=== PATIENT | female | born 1965 | race Asian ===

== ENCOUNTER 2016-07-08 10:27 | Day surgery (SDC) | payer BC, OTHER ==
[2016-07-06 15:07] VITALS: BMI 24.7
[2016-07-08] MEDS ORDERED: LIDOCAINE 1% 20 ML VIAL (10MG/ML) FOR IV START INTRADERMA ONE (11:21)
[2016-07-08] MEDS: LACTATED RINGERS 1,000 ML IV SCH ×2 (11:21→11:40)
[2016-07-08] MEDS ORDERED: LIDOCAINE 1% INJ 10MG/ML (20 ML MDV) ONE (11:45)
[2016-07-08] MEDS ORDERED: PROPOFOL 10 MG/ML 20 ML VIAL IV ONE (11:45)
--- NOTE | 2016-07-08 11:59 | P.PCN ---
Date of Procedure: 07/08/16 Procedure(s) Performed: BRIEF HISTORY: Patient is a 50-year-old pleasant white female, scheduled for an elective colonoscopy as a part of screening for colorectal neoplasia. PROCEDURE PERFORMED: Colonoscopy. PREOPERATIVE DIAGNOSIS: Screening for colon cancer. IV sedation per Anesthesia. PROCEDURE: After informed consent was obtained, the patient, was brought into the endoscopy unit. IV sedation was administered by Anesthesia under continuous monitoring. Digital rectal examination was normal. Initially the Olympus CF- 160 flexible video colonoscope was then inserted in the rectum, gradually advanced into the cecum without any difficulty. Careful examination was performed as the scope was gradually being withdrawn. Ileocecal valve and the appendiceal orifice were visualized and appeared normal. Prep was fair and thorough irrigation was performed using irrigation system. Mucosa of the cecum, ascending colon, transverse colon, descending colon, sigmoid colon, and rectum appeared normal. Retroflexion was performed in the rectum and no lesions were seen. The patient tolerated the procedure well. IMPRESSION: Normal-appearing colon from rectum to cecum no evidence of colorectal neoplasia. RECOMMENDATIONS: Findings of this examination were discussed with the patient as well as her family. She was advised to have a repeat screening colonoscopy in 10 years.
[2016-07-08 12:04] VITALS: RESP 18
[2016-07-08 12:51] VITALS: BP 112/76; PULSE 77
== END 2016-07-08 12:53 | disposition home or self-care (01) ==
LOC: ORWHC2ENDO 10:27
PROVIDERS: ATTEND Internal Medicine Gastroenterology
DX: Z12.11 Encounter for screening for malignant neoplasm of colon (principal); Z79.82 Long term (current) use of aspirin; Z72.0 Tobacco use; K21.9 Gastro-esophageal reflux disease without esophagitis; Z88.2 Allergy status to sulfonamides
CPT/HCPCS: 81025; J2001; J2704; G0121

== ENCOUNTER → 2016-09-06 | Outpatient (CLI) | payer BC ==
--- NOTE | 2016-09-06 08:15 | MR ---
EXAMINATION TYPE: MR knee RT wo con DATE OF EXAM: 09/06/2016 COMPARISON: NONE HISTORY: RT knee pain TECHNIQUE: Multiplanar, multisequence imaging of the right knee is performed without IV contrast. 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 CRUCIATE LIGAMENTS: The anterior and posterior cruciate ligaments are intact and unremarkable. COLLATERAL LIGAMENTS: The medial collateral ligament and lateral collateral ligament complex are inta ct and unremarkable. EXTENSOR MECHANISM: Visualized quadriceps and patellar tendons are intact. EFFUSION: No significant suprapatellar joint effusion. POPLITEAL CYST: There is a popliteal fossa cyst measuring 1 x 2 x 4 cm. TRICOMPARTMENT SPACES: Joint spaces appear to demonstrate mild narrowing of the medial compartment of the knee joint. There is grade II chondromalacia the medial femoral articular cartilage. Patellar ca rtilage demonstrates thinning along the medial patellar facet compatible with chondromalacia. BONE MARROW SIGNAL: Cystic change involving the inferior pole of the patella likely related to post a rthritic changes IMPRESSION: Osteoarthritis and changes of chondromalacia as discussed above 1 x 2 x 4 cm popliteal fossa cyst
== END | disposition home or self-care (01) ==
LOC: RADMRIMAIN 07:09
PROVIDERS: ATTEND Orthopaedic Surgery
DX: M17.11 Unilateral primary osteoarthritis, right knee (principal); M71.21 Synovial cyst of popliteal space [Baker], right knee; M94.261 Chondromalacia, right knee

== ENCOUNTER 2019-04-19 10:10 | Day surgery (SDC) | payer BC ==
[2019-04-19 10:34] VITALS: RESP 16; TEMP 98.8
[2019-04-19] MEDS ORDERED: LACTATED RINGERS 1,000 ML IV ONE (10:37)
[2019-04-19 11:24] LABS: HCT 37.9 % (34.0-46.0); HGB 13.1 gm/dL (11.4-16.0); MCH 31.9 pg (25.0-35.0); MCHC 34.6 g/dL (31.0-37.0); MCV 92.1 fL (80.0-100.0); Mean Platelet Volume 7.5; Platelet Count 308 k/uL (150-450); RBC 4.12 m/uL (3.80-5.40); RDW 12.4 % (11.5-15.5); WBC 2.6 k/uL (3.8-10.6)
--- NOTE | 2019-04-19 11:51 | P.GSHP ---
History of Present Illness H&P Date: 04/19/19 Chief Complaint: Dysphagia, GERD This a 53-year-old female has had issues with GERD and dysphagia. Patient presents today for EGD. Past Medical History Past Medical History: GERD/Reflux, Hypertension, Thyroid Disorder Additional Past Medical History / Comment(s): HX HIATAL HERNIA W/ prev SURGERY; CT scan shows hiatal hernia now, LOW THYROID History of Any Multi-Drug Resistant Organisms: None Reported Past Surgical History: Hernia Repair, Orthopedic Surgery, Tubal Ligation Additional Past Surgical History / Comment(s): Lt knee scope, hiatal hernia repair 2002, abdominoplasty Past Anesthesia/Blood Transfusion Reactions: Postoperative Nausea & Vomiting (PONV) Additional Past Anesthesia/Blood Transfusion Reaction / Comment(s): WOKE UP DURING EGD. Smoking Status: Current every day smoker - Past Family History Mother Family Medical History: No Reported History Father Family Medical History: Cancer Medications and Allergies Home Medications Medication Instructions Recorded Confirmed Type Acetaminophen [Tylenol Extra 500 - 1,000 mg PO DIRECTED PRN 04/18/19 04/19/19 History Strength] Levothyroxine Sodium [Synthroid] 75 mcg PO DAILY 04/18/19 04/19/19 History amLODIPine [Norvasc] 5 mg PO DAILY 04/18/19 04/19/19 History Allergies Allergy/AdvReac Type Severity Reaction Status Date / Time Sulfa (Sulfonamide Allergy Swelling Verified 04/19/19 10:26 Antibiotics) Surgical - Exam Vital Signs Temp Pulse Resp BP Pulse Ox 98.8 F 75 16 116/66 95 04/19/19 10:30 04/19/19 10:30 04/19/19 10:30 04/19/19 10:30 04/19/19 10:30 - General well developed, well nourished, no distress - Eyes PERRL - ENT normal pinna - Neck no masses - Respiratory normal expansion - Cardiovascular Rhythm: regular - Abdomen Abdomen: soft, non tender Results - Labs 04/19/19 10:40 Abnormal Lab Results - Last 24 Hours (Table) 04/19/19 Range/Units 10:40 WBC 2.6 L (3.8-10.6) k/uL Assessment and Plan Assessment: GERD, dysphagia. We'll perform EGD.
[2019-04-19] MEDS ORDERED: PROPOFOL 10 MG/ML 20 ML VIAL IV ONE (11:54)
[2019-04-19] MEDS ORDERED: LIDOCAINE 1% INJ 10MG/ML (20 ML MDV) ONE (11:54)
--- NOTE | 2019-04-19 11:57 | P.OP ---
Date of Procedure: 04/19/19 Preoperative Diagnosis: GERD Dysphagia Postoperative Diagnosis: Hiatal hernia Antral gastritis Esophagitis Procedure(s) Performed: EGD Anesthesia: MAC Surgeon: Rocco Davidson Pathology: other (Antrum, esophagus) Condition: stable Disposition: PACU Description of Procedure: The patient's placed on the endoscopy table in the lateral position. She received IV sedation. The gastric was placed oropharynx and passed in the esophagus and then the stomach. Scope was then placed through the pylorus. The first and second portion of the duodenum appeared normal. Scope was then brought back the antrum and this appeared mildly inflamed. A biopsies performed. Scope was unretroflexed patient had a moderate size hiatal hernia. The GE junction was at 38 cm . The distal esophagus appeared mildly inflamed. The proximal esophagus appeared normal. The distal esophagus was biopsied. Scope was withdrawn for patient.
[2019-04-19 12:34] VITALS: BP 111/73; PULSE 73
== END 2019-04-19 12:58 | disposition home or self-care (01) ==
LOC: ORWHC2ENDO 10:10
PROVIDERS: ATTEND Surgery
DX: K31.9 Disease of stomach and duodenum, unspecified (principal); K29.70 Gastritis, unspecified, without bleeding; K21.0 Gastro-esophageal reflux disease with esophagitis; K44.9 Diaphragmatic hernia without obstruction or gangrene; I10 Essential (primary) hypertension; E03.9 Hypothyroidism, unspecified; M51.9 Unspecified thoracic, thoracolumbar and lumbosacral intervertebral disc disorder; R51 Headache; F17.200 Nicotine dependence, unspecified, uncomplicated; Z87.19 Personal history of other diseases of the digestive system; Z98.890 Other specified postprocedural states; Z98.51 Tubal ligation status; Z91.89 Other specified personal risk factors, not elsewhere classified; Z79.890 Hormone replacement therapy; Z79.899 Other long term (current) drug therapy; Z88.2 Allergy status to sulfonamides; Z80.9 Family history of malignant neoplasm, unspecified
CPT/HCPCS: 93005; 88305; 85027; 43239; J2001; J2704

== ENCOUNTER 2019-04-23 07:38 | Inpatient (IN) | payer BC ==
[~2019-04-23 07:38] MED LIST: DEXAMETHASONE SOD PHOSPHATE 10 MG/ML 1 ML VIAL IV ONE; HEPARIN SODIUM,PORCINE 5,000 UNIT/ML 1 ML VIAL SQ ONE; LACTATED RINGERS 1,000 ML IV SCH; LIDOCAINE 1% 20 ML VIAL (10MG/ML) FOR IV START INTRADERMA PRN; ONDANSETRON 4 MG/2 ML VIAL IVP ONE
--- NOTE | 2019-04-23 08:47 | P.GSHP ---
History of Present Illness H&P Date: 04/23/19 Chief Complaint: GERD This 53-year-old female has developed a recurrent hiatal hernia. Patient rents today for laparoscopic repair of hiatal hernia. Past Medical History Past Medical History: GERD/Reflux, Hypertension, Thyroid Disorder Additional Past Medical History / Comment(s): HX HIATAL HERNIA W/ prev SURGERY; CT scan shows hiatal hernia now, LOW THYROID History of Any Multi-Drug Resistant Organisms: None Reported Past Surgical History: Hernia Repair, Orthopedic Surgery, Tubal Ligation Additional Past Surgical History / Comment(s): Lt knee scope, hiatal hernia repair 2002, abdominoplasty Past Anesthesia/Blood Transfusion Reactions: Postoperative Nausea & Vomiting (PONV) Additional Past Anesthesia/Blood Transfusion Reaction / Comment(s): WOKE UP DURING EGD. Smoking Status: Current every day smoker - Past Family History Mother Family Medical History: No Reported History Father Family Medical History: Cancer Additional Family Medical History / Comment(s): leukemia Medications and Allergies Home Medications Medication Instructions Recorded Confirmed Type Acetaminophen [Tylenol Extra 500 - 1,000 mg PO DIRECTED PRN 04/18/19 04/19/19 History Strength] Levothyroxine Sodium [Synthroid] 75 mcg PO DAILY 04/18/19 04/19/19 History amLODIPine [Norvasc] 5 mg PO DAILY 04/18/19 04/19/19 History Allergies Allergy/AdvReac Type Severity Reaction Status Date / Time Sulfa (Sulfonamide Allergy Swelling Verified 04/19/19 10:26 Antibiotics) Surgical - Exam Vital Signs Temp Pulse Resp BP Pulse Ox 99.3 F 82 16 135/65 95 04/23/19 07:59 04/23/19 07:59 04/23/19 07:59 04/23/19 07:59 04/23/19 07:59 - General well developed, well nourished, no distress - Eyes PERRL - ENT normal pinna - Neck no masses - Respiratory normal expansion - Cardiovascular Rhythm: regular - Abdomen Abdomen: soft, non tender Assessment and Plan Assessment: Hilar hernia. We'll perform laparoscopic repair.
[2019-04-23] MEDS ORDERED: MIDAZOLAM 2 MG/2 ML VIAL ONE (09:01)
[2019-04-23] MEDS ORDERED: fentaNYL (PF) 50 MCG/ML 2 ML AMP ONE (09:01)
[2019-04-23] MEDS ORDERED: KETOROLAC 30 MG/ML 1 ML VIAL ONE (09:01)
[2019-04-23] MEDS ORDERED: ROCURONIUM BROMIDE 10 MG/ML 10 ML VIAL IV ONE (09:01)
[2019-04-23] MEDS ORDERED: HYDROmorphone (PF) 1 MG/ML ONE (09:01)
[2019-04-23] MEDS ORDERED: NEOSTIGMINE 1 MG/ML 10 ML VIAL ONE (09:01)
[2019-04-23] MEDS ORDERED: LIDOCAINE 1% INJ 10MG/ML (20 ML MDV) ONE (09:01)
[2019-04-23] MEDS ORDERED: PHENYLEPHRINE-0.9% NACL SYG 1 MG/10 ML SYRINGE ONE (09:01)
[2019-04-23] MEDS ORDERED: GLYCOPYRROLATE 0.2 MG/ML 2 ML VIAL ONE (09:01)
[2019-04-23] MEDS ORDERED: BUPIVACAINE (PF) 0.25% 30 ML VIAL SQ ONE (09:29)
[2019-04-23] MEDS ORDERED: LACTATED RINGERS 1,000 ML IV ONE (10:08)
[2019-04-23] MEDS ORDERED: diphenhydrAMINE 50 MG/ML 1 ML VIAL IVP ONE (10:40)
[2019-04-23] MEDS: HYDROmorphone 0.5 MG/0.5 ML SYRINGE IVP PRN ×4 (10:47→11:25)
--- NOTE | 2019-04-23 10:55 | P.OP ---
Date of Procedure: 04/23/19 Preoperative Diagnosis: GERD Dysphagia Postoperative Diagnosis: GERD Dysphagia Large hiatal hernia Procedure(s) Performed: Laparoscopic hiatal hernia with mesh repair of hiatus Anesthesia: WERNER Surgeon: Rocco Davidson Estimated Blood Loss (ml): 10 Pathology: none sent Condition: stable Disposition: PACU Description of Procedure: The patient was placed on the operating table in the supine position. She received general anesthesia. She was then placed in dorsal lithotomy position. Her abdomen was prepped and draped in the usual sterile fashion. The skin incision sites were anesthetized with 1% local Xylocaine. The skin was incised in the left periumbilical area with an 11 scalpel. Using a 5 mm blade was trocar under direct visitation the peritoneal cavity was entered. And then insufflated. After adequate insufflation the laparoscope was placed back into the peritoneal cavity. Next a 5 mm trocar was placed in the right epigastric and then the right lateral position. Another 5 mm trochars placed in the left lateral position. Another 5 mm trocar placed in the left epigastric position. And the original left periumbilical trocar was exchanged for a 10 mm trocar. The left lateral lobe liver was retracted. The patient had a large hiatal hernia. Using the Harmonic scissors the crural defect was dissected in the Harmonic scissors were used to dissect the hiatal hernia sac. The fundus of the stomach was completely mobilized by using the Harmonic scissors to divide short gastric vessels. The stomach was reduced into the peritoneal cavity. The crura was dissected with the Harmonic scissors. And then the crural repair was performed using 2-0 Ethibond suture. The [place] bio A mesh was then placed over top of the repair and secured with 2-0 Ethibond suture. Next a 58-Lao bougie dilator was placed the patient's oral pharynx and into the esophagus into the stomach by the CHECK WEIGHER. The 180 fundoplication was then performed using 2-0 Ethibond suture At this point the dilator was withdrawn. The stomach and esophagus were inspected there is known to any injury to the stomach or esophagus. The abdomen was irrigated there is no bleeding seen. The trochars are withdrawn. Skin was closed interrupted 3-0 Monocryl suture. Dermabond was applied. Patient tolerated procedure well and was sent to recovery in stable condition.
[2019-04-23] MEDS ORDERED: ONDANSETRON 4 MG/2 ML VIAL IVP ONE (11:03)
[2019-04-23] MEDS: METOCLOPRAMIDE 5 MG/ML 2 ML VIAL IVP SCH ×3 (11:34→23:50)
[2019-04-23] MEDS: HYDROmorphone 1 MG/ML 1 ML SYRINGE IVP PRN ×2 (14:10→18:26)
[2019-04-23] MEDS: D5-0.45% NACL WITH KCL 20MEQ/L 1,000 ML IV SCH ×2 (14:11→20:43)
--- NOTE | 2019-04-23 15:18 | P.HPIM ---
History of Present Illness H&P Date: 04/23/19 Chief Complaint: pain Patient is a 53yo CF with hypertension, hypothyroidism with TSH of 158.9, and tobacco abuse who presented for elective hiatal hernia repair. Hiatal Hernia surgery after being found to have hiatal hernia on CT and then scope with Dr. Davidson and prepared for surgical repair. Left shoulder pain after surgery, Dilaudid decreasing the pain. No SOB, No nausea, No chest pain. Had been having a cough, no fevers or flus Review of Systems Pertinent positives and negatives as discussed in HPI, a complete review of systems was performed and all other systems are negative. Past Medical History Past Medical History: GERD/Reflux, Hypertension, Thyroid Disorder Additional Past Medical History / Comment(s): HX HIATAL HERNIA W/ prev SURGERY; Hypothyroidism History of Any Multi-Drug Resistant Organisms: None Reported Past Surgical History: Hernia Repair, Orthopedic Surgery, Tubal Ligation Additional Past Surgical History / Comment(s): Lt knee scope, hiatal hernia repair 2002, abdominoplasty Past Anesthesia/Blood Transfusion Reactions: Postoperative Nausea & Vomiting (PONV) Additional Past Anesthesia/Blood Transfusion Reaction / Comment(s): WOKE UP DURING EGD. Smoking Status: Current every day smoker Past Alcohol Use History: None Reported Past Drug Use History: None Reported Additional History: 1/3 PPD smoking, No ETOH, no illicit druga - Past Family History Mother Family Medical History: No Reported History Father Family Medical History: Cancer, Hypertension Additional Family Medical History / Comment(s): leukemia Medications and Allergies Home Medications Medication Instructions Recorded Confirmed Type Acetaminophen [Tylenol Extra 500 - 1,000 mg PO DIRECTED PRN 04/18/19 04/19/19 History Strength] Levothyroxine Sodium [Synthroid] 75 mcg PO DAILY 04/18/19 04/19/19 History amLODIPine [Norvasc] 5 mg PO DAILY 04/18/19 04/19/19 History Hydrocodone/Acetaminophen [Stanley 1 tab PO Q6HR PRN #10 tab 04/23/19 Rx 5-325] Allergies Allergy/AdvReac Type Severity Reaction Status Date / Time Sulfa (Sulfonamide Allergy Swelling Verified 04/19/19 10:26 Antibiotics) Physical Exam Osteopathic Statement: *. No significant issues noted on an osteopathic structural exam other than those noted in the History and Physical/Consult. Vitals: Vital Signs Temp Pulse Resp BP Pulse Ox 04/23/19 13:45 103 H 18 126/78 94 L 04/23/19 13:15 99 18 129/76 94 L 04/23/19 12:45 97 18 141/72 94 L 04/23/19 12:30 96 16 127/75 95 04/23/19 12:15 97 16 143/79 95 04/23/19 12:00 98.3 F 93 18 123/68 90 L 04/23/19 11:30 95 20 131/62 96 04/23/19 11:15 98 20 144/63 95 04/23/19 11:00 94 22 136/77 94 L 04/23/19 10:45 104 H 22 177/79 95 04/23/19 10:32 96.8 F L 107 H 22 190/100 95 04/23/19 07:59 99.3 F 82 16 135/65 95 Intake and Output 04/22/19 04/23/19 04/23/19 22:59 06:59 14:59 Intake Total 1450 Output Total 10 Balance 1440 Intake: IV 1450 Output: Estimated Blood Loss 10 Other: Weight 62 kg General: [ill appearing], [no distress], [appears at stated age], [normal weight] Derm: [no unusual rashes/lesions] [no unusual ecchymoses], [warm], [dry] Head: [atraumatic], [normocephalic], [symmetric] Eyes: [EOMI], [no lid lag], [anicteric sclera], [pupils equal round reactive to light] ENT: [Nose and ears atraumatic], [no thrush], [no pharyngeal erythema] Neck: [No thyromegaly], [no cervical lymphadenopathy], [trachea midline], [supple] Mouth: [no lip lesion], [mucus membranes moist] Cardiovascular: [S1S2 reg], [no murmur], [positive posterior tibial pulse bilateral], [no edema], [capillary refill less than 2 seconds] Lungs: [decreased bs bilateral], [no rhonchi, no rales] , [no accessory muscle use] Abdominal: hypoactive bowel sounds, [soft], [ nontender to palpation], [no guarding], [no appreciable organomegaly] Ext: [no gross muscle atrophy], [moving all 4 extremities independently], [no contractures], Neuro: [ CN II-XI grossly intact], [light touch intact all 4 extremities], [finger to nose within normal limits], Psych: [Alert], [oriented], [appropriate affect] Thrombosis Risk Factor Assmnt - DVT/VTE Prophylaxis DVT/VTE Prophylaxis: Low risk, early ambulation encouraged - Choose All That Apply Each Factor Represents 1 point: Age 41-60 years, Obesity (BMI >25) Each Risk Factor Represents 2 Points: Laparoscopic surgery, Major surgery Thrombosis Risk Factor Assessment Total Risk Factor Score: 6 Thrombosis Risk Factor Assessment Level: High Risk Assessment and Plan Assessment: Patient is 53 yo CF here for elective hernia repair. Being managed by surgery. HTN - controlled - resume norvasc Hypothyroidism - synthroid - TSH 158 - Has appt with PCP end of feburary Tobacco abuse - cessation - nicotine replacement Thank you for allowing us to participate in the care of this pleasant patient. Do not hesitate to contact us with questions. Someone can be reached from the [facility] hospitalist group all hours of the day at [phone] or via perfect serve.
[2019-04-23] MEDS ORDERED: NICOTINE 14MG/24HR PATCH TRANSDERM PRN (15:20)
[2019-04-23 15:31] VITALS: BMI 25.0
[2019-04-23 17:33] LABS: Appearance,Urine Clear (Clear); Bacteria,Urine Rare /hpf; Bilirubin,Urine Negative (Negative); Blood,Urine Small (Negative); Color,Urine Yellow; Glucose,Urine (UA) 3+ (Negative); Ketones,Urine Negative (Negative); Leukocyte Esterase,Urine Negative (Negative); Mucus,Urine Occasional /hpf; Nitrite,Urine Negative (Negative); PH, Urine 5.5 (5.0-8.0); Protein,Urine Negative (Negative); RBC,Urine 3 /hpf (0-5); Specific Gravity,Urine 1.018 (1.001-1.035); Squamous Epithelial Cell,Urine 1 /hpf (0-4); Urobilinogen,Urine <2.0 mg/dL (<2.0); WBC,Urine 2 /hpf (0-5)
[2019-04-23] MEDS ORDERED: amLODIPine 5 MG TAB PO SCH (19:30)
[2019-04-23] MEDS ORDERED: LEVOTHYROXINE 75 MCG TAB PO SCH (19:30)
[2019-04-23] MEDS: HYDROcodone/APAP 5-325MG 1 EACH TAB PO PRN (23:50)
[2019-04-24] MEDS: D5-0.45% NACL WITH KCL 20MEQ/L 1,000 ML IV SCH (03:02)
[2019-04-24] MEDS: METOCLOPRAMIDE 5 MG/ML 2 ML VIAL IVP SCH (06:38)
[2019-04-24 07:57] LABS: HCT 38.7 % (34.0-46.0); HGB 12.5 gm/dL (11.4-16.0); MCH 29.7 pg (25.0-35.0); MCHC 32.2 g/dL (31.0-37.0); MCV 92.2 fL (80.0-100.0); Mean Platelet Volume 7.5; Platelet Count 287 k/uL (150-450); RDW 12.6 % (11.5-15.5); WBC 4.2 k/uL (3.8-10.6)
[2019-04-24 08:10] LABS: African American GFR (CKD) >90 (>60 ml/min/1.73 sqM); Anion Gap 6 mmol/L; Blood Urea Nitrogen 6 mg/dL (7-17); Calcium 8.2 mg/dL (8.4-10.2); Carbon Dioxide 26 mmol/L (22-30); Chloride 107 mmol/L (98-107); Glucose 107 mg/dL (74-99); Non-African American GFR(CKD) >90 (>60 ml/min/1.73 sqM); Potassium 4.1 mmol/L (3.5-5.1); Sodium 139 mmol/L (137-145)
[2019-04-24] MEDS: HYDROcodone/APAP 5-325MG 1 EACH TAB PO PRN (08:22)
[2019-04-24] MEDS ORDERED: ENOXAPARIN 40 MG/0.4 ML SYRINGE SQ SCH (09:00)
[2019-04-24 09:11] VITALS: BP 130/77; PULSE 86; RESP 24; TEMP 98.2
--- NOTE | 2019-04-24 09:30 | P.PN ---
Subjective Progress Note Date: 04/24/19 Principal diagnosis: hiatal hernia Patient is a 53-year-old female who presented for hiatal hernia repair. She had an uneventful post-operative course. Patient seen and examined at bedside. She reports her pain is tolerable on oral medications. No nausea or vomiting. Had one episode of coughing this morning but feels better. Wants to go home. Objective - Vital Signs Vital signs: Vital Signs Temp 98.2 F 04/24/19 08:10 Pulse 86 04/24/19 08:10 Resp 24 04/24/19 08:10 BP 130/77 04/24/19 08:10 Pulse Ox 92 L 04/24/19 08:10 Intake & Output 04/23/19 04/24/19 04/24/19 18:59 06:59 18:59 Intake Total 1450 1000 Output Total 360 1675 Balance 1090 -675 Weight 62 kg Intake: IV 1450 Intake, IV Titration 1000 Amount D5-0.45% NaCl with KCl 1000 20Meq/l 1,000 ml @ 125 mls/hr IV .Q8H MIGUEL Rx#: [id number] Output: Urine 350 1675 Estimated Blood Loss 10 Other: # Voids 1 1 - Exam General: non toxic, no distress, appears at stated age Derm: warm, dry Head: atraumatic, normocephalic, symmetric Eyes: EOMI, no lid lag, anicteric sclera Mouth: no lip lesion, mucus membranes moist Cardiovascular: S1S2 reg, no murmur, positive posterior tibial pulse bilateral, Lungs: CTA bilateral, no rhonchi, no rales , no accessory muscle use Abdominal: soft, + tender to palpation periumbilical, no guarding, no appreciable organomegaly Ext: no gross muscle atrophy, no edema, no contractures Neuro: CN II-XI grossly intact, no focal neuro deficits Psych: Alert, oriented, appropriate affect - Labs CBC & Chem 7: 04/24/19 06:59 04/24/19 06:59 Labs: Abnormal Lab Results - Last 24 Hours (Table) 04/23/19 04/24/19 Range/Units 17:15 06:59 BUN 6 L (7-17) mg/dL Creatinine 0.48 L (0.52-1.04) mg/dL Glucose 107 H (74-99) mg/dL Calcium 8.2 L (8.4-10.2) mg/dL Urine Glucose (UA) 3+ H (Negative) Urine Blood Small H (Negative) Urine Bacteria Rare H (None) /hpf Urine Mucus Occasional H (None) /hpf Assessment and Plan Assessment: Patient is 53 yo CF here for elective hernia repair. Being managed by surgery. HTN - controlled - norvasc Hypothyroidism - synthroid - TSH 158 - Has appt with PCP end of feburary Tobacco abuse - cessation - nicotine replacement Medically optimized for discharge
--- NOTE | 2019-04-24 10:25 | FL ---
EXAMINATION TYPE: FL esophagus cervic/pharynx DATE OF EXAM: 04/24/2019 LIMITED ESOPHAGRAM: CLINICAL HISTORY: Reflux with hiatal hernia repair surgery one day ago. TECHNIQUE: Limited esophagram is performed utilizing 25 oz of Isovue-370. A total of 17 seconds of f luoroscopic time was utilized during procedure. 17 spot images saved. FINDINGS: The patient swallowed contrast without difficulty or delay. Esophageal peristalsis and mo tility are within normal limits. There is good flow of contrast along the diaphragmatic hiatus into t he stomach, there is no evidence of contrast extravasation to suggest leak. Surrounding surgical sutu res and clips at this level are noted. No persistent hiatal hernia is seen. Patient remains asymptoma tic. IMPRESSION: No evidence of leak or significant obstruction status post Prashant fundoplication surgery earlier today.
--- NOTE | 2019-04-24 10:38 | P.DS ---
Providers Date of admission: 04/23/19 07:38 Expected date of discharge: 04/24/19 Attending physician: Rocco Davidson Consults: 04/23/19 10:48 Consult Physician Routine Consulting Provider: Xochitl Fairbanks Consult Reason/Comments: Medical management Do you want consulting provider notified?: Yes [facility] care physician: [facility]: 53-year-old female who underwent laparoscopic hiatal hernia with mesh repair with Dr. Davidson on 04/23/2019. Patient is doing well postoperative without any immediate complications. She is tolerating liquid diet. Esophagram completed postoperatively negative for leak or obstruction. Pain is controlled on oral medications. She is stable for discharge home today. Please see EMR for further hospital course details. Discharge diagnosis 1. GERD, dysphasia, large hiatal hernia, status post laparoscopic hiatal hernia with mesh repair Nurse practitioner note has been reviewed by physician. Signing provider agrees with the documented findings, assessment, and plan of care. Patient Condition at Discharge: Stable Plan - Discharge Summary Discharge Rx Participant: No New Discharge Prescriptions: New Hydrocodone/Acetaminophen [[place] 5-325] 1 tab PO Q6HR PRN #10 tab PRN Reason: Pain Continue amLODIPine [Norvasc] 5 mg PO DAILY Levothyroxine Sodium [Synthroid] 75 mcg PO DAILY Discontinued Acetaminophen [Tylenol Extra Strength] 500 - 1,000 mg PO DIRECTED PRN PRN Reason: Pain Discharge Medication List Levothyroxine Sodium [Synthroid] 75 mcg PO DAILY 04/18/19 [History] amLODIPine [Norvasc] 5 mg PO DAILY 04/18/19 [History] Hydrocodone/Acetaminophen [[place] 5-325] 1 tab PO Q6HR PRN #10 tab 04/23/19 [Rx] Follow up Appointment(s)/Referral(s): Ashley Garza MD [Primary Care Provider] - As Needed Rocco Davidson MD [STAFF PHYSICIAN] - 1 Week Activity/Diet/Wound Care/Special Instructions: No driving while taking [place] No lifting over 10 pounds You may shower. No soaking or tub baths Very light activity until you are reevaluated at your follow up appointment with your surgeon
== END 2019-04-24 12:25 | disposition home or self-care (01) | DRG 328 ==
LOC: 2ORMAIN 07:38 → EDSTATUS 08:45 → 6PED 10:48
PROVIDERS: ADMIT Surgery; ATTEND Surgery
PROC: 0DV44ZZ Restriction of Esophagogastric Junction, Percutaneous Endoscopic Approach (ICD-10-PCS; 2019-04-23)
PROC: 0BUT4JZ Supplement Diaphragm with Synthetic Substitute, Percutaneous Endoscopic Approach (ICD-10-PCS; principal; 2019-04-23 08:35)
DX: K44.9 Diaphragmatic hernia without obstruction or gangrene (principal); R13.10 Dysphagia, unspecified; K21.9 Gastro-esophageal reflux disease without esophagitis; I10 Essential (primary) hypertension; E03.9 Hypothyroidism, unspecified; F17.210 Nicotine dependence, cigarettes, uncomplicated; M25.512 Pain in left shoulder; Z79.890 Hormone replacement therapy; Z79.899 Other long term (current) drug therapy; Z98.890 Other specified postprocedural states; Z88.2 Allergy status to sulfonamides; Z82.49 Family history of ischemic heart disease and other diseases of the circulatory system; Z80.6 Family history of leukemia
CPT/HCPCS: 74210; 80048; 81001; 85027

== ENCOUNTER → 2020-01-31 | Outpatient (CLI) | payer BC ==
--- NOTE | 2020-02-01 09:41 | CT ---
EXAMINATION TYPE: CT abdomen pelvis w con DATE OF EXAM: 01/31/2020 COMPARISON: None HISTORY: Diverticulitis, recent hiatal hernia sx CT DLP: 987 mGycm Automated exposure control for dose reduction was used. TECHNIQUE: Helical acquisition of images from the lung bases through the pelvis have been completed. CONTRAST: Performed with Oral Contrast and with IV Contrast, patient injected with 100 mL of Isovue 300. FINDINGS: Postop changes are present at the gastroesophageal junction, some local esophageal thickeni ng is present which may be postoperative but is indeterminate. Umbilical hernia contains fat. LUNG BASES: No significant abnormality is appreciated. AORTA: No significant abnormality is appreciated. LIVER/GB: No significant abnormality is appreciated. PANCREAS: No significant abnormality is seen. SPLEEN: No significant abnormality is seen. ADRENALS: No significant abnormality is seen. KIDNEYS: No significant abnormality is seen. REPRODUCTIVE ORGANS: No significant abnormality is seen BOWEL: Colonic wall thickening in the rectosigmoid region is present, diverticular changes noted. Th ere is no bowel obstruction. FREE AIR: No Free Air visible. ASCITES: None visible. PELVIC ADENOPATHY: None visualized. RETROPERITONEAL ADENOPATHY: No Retroperitoneal Adenopathy visible. URINARY BLADDER: No significant abnormality is seen. OSSEOUS STRUCTURES: No significant abnormality is seen. IMPRESSION: DIVERTICULOSIS. COLONIC WALL THICKENING COULD BE DUE TO UNDERLYING COLITIS, DIFFICULT TO EXCLUDE A MU COSAL LESION. POSTOP CHANGES AND ADDITIONAL FINDINGS ABOVE.
== END | disposition home or self-care (01) ==
LOC: RADCTMAIN 16:07
PROVIDERS: ATTEND Surgery
DX: K57.30 Diverticulosis of large intestine without perforation or abscess without bleeding (principal); K63.89 Other specified diseases of intestine; K42.9 Umbilical hernia without obstruction or gangrene; Z98.890 Other specified postprocedural states
CPT/HCPCS: 74177; Q9967

== ENCOUNTER 2020-02-07 10:24 | Day surgery (SDC) | payer BC ==
[2020-02-06 09:24] VITALS: BMI 24.7
[~2020-02-07 10:24] MED LIST changes: -DEXAMETHASONE SOD PHOSPHATE 10 MG/ML 1 ML VIAL IV ONE; -HEPARIN SODIUM,PORCINE 5,000 UNIT/ML 1 ML VIAL SQ ONE; +LIDOCAINE 1% (10MG/ML) FOR IV START INTRADERMA PRN; -LIDOCAINE 1% 20 ML VIAL (10MG/ML) FOR IV START INTRADERMA PRN; -ONDANSETRON 4 MG/2 ML VIAL IVP ONE
[2020-02-07 11:02] VITALS: RESP 16; TEMP 96.9
[2020-02-07] MEDS ORDERED: PROPOFOL 10 MG/ML 20 ML VIAL IV ONE (11:30)
--- NOTE | 2020-02-07 11:32 | P.GSHP ---
History of Present Illness H&P Date: 02/07/20 Chief Complaint: Diverticulitis Is a 54-year-old female who's had complaints of left lower quadrant pain. Her recent CAT scan shows evidence of diverticulitis. She'll stay for colonoscopy Past Medical History Past Medical History: GERD/Reflux, Hypertension, Thyroid Disorder Additional Past Medical History / Comment(s): HX HIATAL HERNIA W/ prev SURGERY; Hypothyroidism History of Any Multi-Drug Resistant Organisms: None Reported Past Surgical History: Hernia Repair, Orthopedic Surgery, Tubal Ligation Additional Past Surgical History / Comment(s): Lt knee scope, hiatal hernia repair 2002, abdominoplasty Past Anesthesia/Blood Transfusion Reactions: Postoperative Nausea & Vomiting (PONV) Additional Past Anesthesia/Blood Transfusion Reaction / Comment(s): WOKE UP DURING EGD. Smoking Status: Current every day smoker - Past Family History Mother Family Medical History: No Reported History Father Family Medical History: Cancer, Hypertension Additional Family Medical History / Comment(s): leukemia Medications and Allergies Home Medications Medication Instructions Recorded Confirmed Type Levothyroxine Sodium [Synthroid] 75 mcg PO QAM 04/18/19 02/07/20 History Aspirin/Acetaminophen/Caffeine 2 each PO DAILY 02/06/20 02/07/20 History [Excedrin Migraine Caplet] Allergies Allergy/AdvReac Type Severity Reaction Status Date / Time Sulfa (Sulfonamide Allergy Swelling Verified 02/07/20 11:10 Antibiotics) Surgical - Exam Vital Signs Temp Pulse Resp BP Pulse Ox 96.9 F L 64 16 134/76 95 02/07/20 10:57 02/07/20 10:57 02/07/20 10:57 02/07/20 10:57 02/07/20 10:57 - General well developed, well nourished, no distress - Eyes PERRL - ENT normal pinna - Neck no masses - Respiratory normal expansion - Cardiovascular Rhythm: regular - Abdomen Abdomen: soft, non tender Assessment and Plan Assessment: Colitis. We'll perform colonoscopy.
--- NOTE | 2020-02-07 11:44 | P.OP ---
Date of Procedure: 02/07/20 Preoperative Diagnosis: Colitis Postoperative Diagnosis: Diverticulosis Procedure(s) Performed: Colonoscopy Anesthesia: MAC Surgeon: Rocco Davidson Pathology: none sent Condition: stable Disposition: PACU Description of Procedure: The patient's placed on the endoscopy table in the lateral position. She received IV sedation. Digital rectal exam was performed which revealed no abnormalities. The flexible colonoscope was then placed patient anus passed throughout the entire colon. The ileocecal valve was visualized. Cecum, ascending and transverse colon appeared normal. In the descending; there is mild diverticular changes. There is no evidence of any obvious colitis. Scope was then brought back the rectum this appeared normal. Scope was withdrawn for patient.
[2020-02-07 12:11] VITALS: BP 137/79; PULSE 58
== END 2020-02-07 12:40 | disposition home or self-care (01) ==
LOC: ORWHC2ENDO 10:24
PROVIDERS: ATTEND Surgery
DX: K57.30 Diverticulosis of large intestine without perforation or abscess without bleeding (principal); I10 Essential (primary) hypertension; E03.9 Hypothyroidism, unspecified; K21.9 Gastro-esophageal reflux disease without esophagitis; F17.200 Nicotine dependence, unspecified, uncomplicated; Z88.2 Allergy status to sulfonamides; Z98.51 Tubal ligation status; Z98.890 Other specified postprocedural states; Z79.82 Long term (current) use of aspirin; Z79.890 Hormone replacement therapy; Z82.49 Family history of ischemic heart disease and other diseases of the circulatory system; Z80.6 Family history of leukemia
CPT/HCPCS: 45378; J2704

== ENCOUNTER 2020-12-03 22:52 | Emergency (ER) | payer BC ==
[2020-12-03 23:10] VITALS: TEMP 98
[2020-12-03] MEDS ORDERED: ONDANSETRON 4 MG/2 ML VIAL IVP STA (23:27)
[2020-12-03] MEDS ORDERED: SODIUM CHLORIDE 0.9% 1,000 ML IV STA (23:27)
[2020-12-03] MEDS ORDERED: KETOROLAC 15 MG/ML 1 ML VIAL IVP STA (23:27)
[2020-12-03] MEDS ORDERED: PANTOPRAZOLE 40 MG/10 ML VIAL IVP STA (23:27)
--- NOTE | 2020-12-04 00:13 | ED ---
Abdominal Pain HPI - General Chief Complaint: Abdominal Pain Stated Complaint: abd pain Time Seen by Provider: 12/03/20 23:12 Source: patient Mode of arrival: ambulatory Limitations: no limitations - History of Present Illness Initial Comments: Patient is a 55-year-old female presenting to the emergency department with complaints of left-sided abdominal pain increasing over the past few days. She's been having on and off left-sided pain for the past few months but worse in the last few days. She describes it as upper left side mostly but she is lo ving some left lower quadrant tenderness. She does have history of diverticulitis, she's had a hiatal hernia repair, tubal ligation, no other abdominal surgeries. She does admit to some mild nausea but no vomiting, no diarrhea. She denies any chest pain or shortness of breath, she denies any feve rs or chills but states she felt like she was "burning up today." Patient denies any dysuria. She has no further complaints. Her vitals are stable upon arrival. - Related Data Home Medications Medication Instructions Recorded Confirmed Levothyroxine Sodium [Synthroid] 75 mcg PO QAM 04/18/19 02/07/20 Aspirin/Acetaminophen/Caffeine 2 each PO DAILY 02/06/20 02/07/20 [Excedrin Migraine Caplet] Previous Rx's Medication Instructions Recorded Levofloxacin [Levaquin] 500 mg PO DAILY 1 Days #7 tab 02/07/20 Allergies Allergy/AdvReac Type Severity Reaction Status Date / Time Sulfa (Sulfonamide Allergy Swelling Verified 02/07/20 11:10 Antibiotics) Review of Systems ROS Statement: Those systems with pertinent positive or pertinent negative responses have been documented in the HPI. ROS Other: All systems not noted in ROS Statement are negative. Past Medical History Past Medical History: GERD/Reflux, Hypertension, Thyroid Disorder Additional Past Medical History / Comment(s): HX HIATAL HERNIA W/ prev SURGERY; Hypothyroidism History of Any Multi-Drug Resistant Organisms: None Reported Past Surgical History: Hernia Repair, Orthopedic Surgery, Tubal Ligation Additional Past Surgical History / Comment(s): Lt knee scope, hiatal hernia repair 2002, abdominoplasty Past Anesthesia/Blood Transfusion Reactions: Postoperative Nausea & Vomiting (P ONV) Additional Past Anesthesia/Blood Transfusion Reaction / Comment(s): WOKE UP DURING EGD. Past Psychological History: No Psychological Hx Reported Smoking Status: Current every day smoker Past Alcohol Use History: None Reported Past Drug Use History: None Reported - Past Family History Mother Family Medical History: No Reported History Father Family Medical History: Cancer, Hypertension Additional Family Medical History / Comment(s): leukemia General Exam - General Exam Comments Initial Comments: GENERAL: Patient is well-developed and well-nourished. Patient is nontoxic and in no acute distress. HEAD: Atraumatic, normocephalic. EYES: Pupils equal round and reactive to light, extraocular movements intact, sclera anicteric, conjunctiva are normal. Eyelids were unremarkable. ENT: TMs normal, nares patent, oropharynx clear without exudates. Moist mucous membranes. NECK: Normal range of motion, supple without lymphadenopathy or JVD. LUNGS: Unlabored respirations. Breath sounds clear to auscultation bilaterally and equal. No wheezes rales or rhonchi. HEART: Regular rate and rhythm without murmurs, rubs or gallops. ABDOMEN: Soft, tender to palpation in the left lower quadrant as well as the upper quadrant, normoactive bowel sounds. No guarding, no rebound. No masses appreciated. : Deferred MUSCULOSKELETAL: Normal extremities with adequate strength and normal range of motion, no pitting or edema. No clubbing or cyanosis. NEUROLOGICAL: Patient is alert and oriented x 3. Normal speech, normal gait. PSYCH: Normal mood, normal affect. SKIN: Warm, Dry, normal turgor, no rashes or lesions noted. Limitations: no limitations Course Vital Signs 12/03/20 23:06 Temperature 98 F Pulse Rate 101 H Respiratory 18 Rate Blood Pressure 149/89 O2 Sat by Pulse 95 Oximetry Medical Decision Making - Medical Decision Making Patient is a 55-year-old female here with left-sided abdominal pain and increasing over the past few days that she's been having this for many months now. She does have history of diverticulosis. Her vitals are stable today, no fevers. She is pretty tender left upper quadrant but also some mild tenderness of left lower quadrant. Labs are unremarkable, urine shows no evidence of infection. CT the abdomen and pelvis shows no acute process at this time, she does have diverticulosis without evidence of diverticulitis. Patient received some fluids and pain meds, reports some mild improvement in her symptoms. I discussed these findings with her. I do not think this is an infectious p rocess, we discussed possibility of a muscle tear. She has no rash indication go. She can follow up with her doctor. She is agreeable to this, she has appointment on Tuesday. Return parameters were discussed with her and she verbalized understanding. Case discussed with Dr. Castellano. - Lab Data Result diagrams: 12/03/20 23:42 12/03/20 23:42 Lab Results 12/03/20 12/03/20 12/03/20 Range/Units 23:42 23:42 23:42 WBC 5.3 (3.8-10.6) k/uL RBC 4.50 (3.80-5.40) m/uL Hgb 14.4 (11.4-16.0) gm/dL Hct 42.6 (34.0-46.0) % MCV 94.7 (80.0-100.0) fL MCH 32.0 (25.0-35.0) pg MCHC 33.8 (31.0-37.0) g/dL RDW 12.3 (11.5-15.5) % Plt Count 299 (150-450) k/uL MPV 7.5 Neutrophils % 65 % Lymphocytes % 28 % Monocytes % 4 % Eosinophils % 3 % Basophils % 0 % Neutrophils # 3.4 (1.3-7.7) k/uL Lymphocytes # 1.5 (1.0-4.8) k/uL Monocytes # 0.2 (0-1.0) k/uL Eosinophils # 0.1 (0-0.7) k/uL Basophils # 0.0 (0-0.2) k/uL Sodium 136 L (137-145) mmol/L Potassium 4.4 (3.5-5.1) mmol/L Chloride 106 (98-107) mmol/L Carbon Dioxide 22 (22-30) mmol/L Anion Gap 8 mmol/L BUN 11 (7-17) mg/dL Creatinine 0.60 (0.52-1.04) mg/dL Est GFR (CKD-EPI)AfAm >90 (>60 ml/min/1.73 sqM) Est GFR (CKD-EPI)NonAf >90 (>60 ml/min/1.73 sqM) Glucose 102 H (74-99) mg/dL Plasma Lactic Acid Travis (0.7-2.0) mmol/L Calcium 9.2 (8.4-10.2) mg/dL Total Bilirubin 0.4 (0.2-1.3) mg/dL AST 27 (14-36) U/L ALT 16 (4-34) U/L Alkaline Phosphatase 66 (38-126) U/L Total Protein 7.0 (6.3-8.2) g/dL Albumin 4.3 (3.5-5.0) g/dL Amylase 84 (30-110) U/L Lipase 66 (23-300) U/L Urine Color Yellow Urine Appearance Cloudy H (Clear) Urine pH 7.0 (5.0-8.0) Ur Specific Viola 1.014 (1.001-1.035) Urine Protein Negative (Negative) Urine Glucose (UA) Negative (Negative) Urine Ketones Negative (Negative) Urine Blood Small H (Negative) Urine Nitrite Negative (Negative) Urine Bilirubin Negative (Negative) Urine Urobilinogen <2.0 (<2.0) mg/dL Ur Leukocyte Esterase Large H (Negative) Urine RBC 1 (0-5) /hpf Urine WBC 4 (0-5) /hpf Ur Squamous Epith Cells 6 H (0-4) /hpf Urine Bacteria Rare H (None) /hpf Urine Mucus Rare H (None) /hpf 12/03/20 Range/Units 23:42 WBC (3.8-10.6) k/uL RBC (3.80-5.40) m/uL Hgb (11.4-16.0) gm/dL Hct (34.0-46.0) % MCV (80.0-100.0) fL MCH (25.0-35.0) pg MCHC (31.0-37.0) g/dL RDW (11.5-15.5) % Plt Count (150-450) k/uL MPV Neutrophils % % Lymphocytes % % Monocytes % % Eosinophils % % Basophils % % Neutrophils # (1.3-7.7) k/uL Lymphocytes # (1.0-4.8) k/uL Monocytes # (0-1.0) k/uL Eosinophils # (0-0.7) k/uL Basophils # (0-0.2) k/uL Sodium (137-145) mmol/L Potassium (3.5-5.1) mmol/L Chloride (98-107) mmol/L Carbon Dioxide (22-30) mmol/L Anion Gap mmol/L BUN (7-17) mg/dL Creatinine (0.52-1.04) mg/dL Est GFR (CKD-EPI)AfAm (>60 ml/min/1.73 sqM) Est GFR (CKD-EPI)NonAf (>60 ml/min/1.73 sqM) Glucose (74-99) mg/dL Plasma Lactic Acid Travis 0.9 (0.7-2.0) mmol/L Calcium (8.4-10.2) mg/dL Total Bilirubin (0.2-1.3) mg/dL AST (14-36) U/L ALT (4-34) U/L Alkaline Phosphatase (38-126) U/L Total Protein (6.3-8.2) g/dL Albumin (3.5-5.0) g/dL Amylase (30-110) U/L Lipase (23-300) U/L Urine Color Urine Appearance (Clear) Urine pH (5.0-8.0) Ur Specific Viola (1.001-1.035) Urine Protein (Negative) Urine Glucose (UA) (Negative) Urine Ketones (Negative) Urine Blood (Negative) Urine Nitrite (Negative) Urine Bilirubin (Negative) Urine Urobilinogen (<2.0) mg/dL Ur Leukocyte Esterase (Negative) Urine RBC (0-5) /hpf Urine WBC (0-5) /hpf Ur Squamous Epith Cells (0-4) /hpf Urine Bacteria (None) /hpf Urine Mucus (None) /hpf Disposition Clinical Impression: Left sided abdominal pain Disposition: HOME SELF-CARE Condition: Stable Instructions (If sedation given, give patient instructions): Abdominal Pain (ED) Additional Instructions: Please return to the Emergency Department if symptoms worsen or any other concerns. Recommend Tylenol or ibuprofen for any discomfort, may try ice or heat to the area. Please follow up with your doctor. Is patient prescribed a controlled substance at d/c from ED?: No Referrals: Ashley Garza MD [Primary Care Provider] - 1-2 days Time of Disposition: 01:20
[2020-12-04 00:14] LABS: Basophils % (A) 0 %; Eosinophils # (A) 0.1 k/uL (0-0.7); Eosinophils % (A) 3 %; HCT 42.6 % (34.0-46.0); HGB 14.4 gm/dL (11.4-16.0); Lymphocytes # (A) 1.5 k/uL (1.0-4.8); Lymphocytes % (A) 28 %; MCHC 33.8 g/dL (31.0-37.0); MCV 94.7 fL (80.0-100.0); Mean Platelet Volume 7.5; Monocytes # (A) 0.2 k/uL (0-1.0); Monocytes % (A) 4 %; Neutrophils # (A) 3.4 k/uL (1.3-7.7); Neutrophils % (A) 65 %; Platelet Count 299 k/uL (150-450); RDW 12.3 % (11.5-15.5); WBC 5.3 k/uL (3.8-10.6)
[2020-12-04 00:31] LABS: Appearance,Urine Cloudy (Clear); Bacteria,Urine Rare /hpf; Bilirubin,Urine Negative (Negative); Blood,Urine Small (Negative); Color,Urine Yellow; Glucose,Urine (UA) Negative (Negative); Ketones,Urine Negative (Negative); Leukocyte Esterase,Urine Large (Negative); Mucus,Urine Rare /hpf; Nitrite,Urine Negative (Negative); Protein,Urine Negative (Negative); RBC,Urine 1 /hpf (0-5); Specific Gravity,Urine 1.014 (1.001-1.035); Squamous Epithelial Cell,Urine 6 /hpf (0-4); Urobilinogen,Urine <2.0 mg/dL (<2.0); WBC,Urine 4 /hpf (0-5)
[2020-12-04 00:33] LABS: ALT 16 U/L (4-34); AST 27 U/L (14-36); African American GFR (CKD) >90 (>60 ml/min/1.73 sqM); Albumin 4.3 g/dL (3.5-5.0); Alkaline Phosphatase 66 U/L (38-126); Amylase 84 U/L (30-110); Anion Gap 8 mmol/L; Blood Urea Nitrogen 11 mg/dL (7-17); Calcium 9.2 mg/dL (8.4-10.2); Carbon Dioxide 22 mmol/L (22-30); Chloride 106 mmol/L (98-107); Glucose 102 mg/dL (74-99); Lipase 66 U/L (23-300); Non-African American GFR(CKD) >90 (>60 ml/min/1.73 sqM); Potassium 4.4 mmol/L (3.5-5.1); Sodium 136 mmol/L (137-145); Total Bilirubin 0.4 mg/dL (0.2-1.3)
--- NOTE | 2020-12-04 00:45 | CT ---
EXAMINATION TYPE: CT abdomen pelvis w con DATE OF EXAM: 12/03/2020 COMPARISON: 01/31/2020 HISTORY: Epigastric pain ,Left Flank Pain CT DLP: 619.10 mGycm Automated exposure control for dose reduction was used. CONTRAST: Performed with IV Contrast, patient injected with 100 mL of Isovue 300. Lung bases are clear. There is no pleural effusion. Heart size is normal. There is no pericardial eff usion. There is small hiatal hernia. Stomach is intact. There are clips at the gastroesophageal junct ion. Liver and spleen appear intact. There is no pancreatic mass. Bile ducts are not dilated. Gallbla dder appears normal. Bladder distends smoothly. Uterus is anteverted. There is no free fluid in the pelvis. There is no in guinal hernia. There is no adrenal mass. Kidneys show satisfactory contrast opacification. There is no hydronephrosi s. Delayed images show normal renal excretion. There is no retroperitoneal adenopathy. There are a fe w sigmoid diverticula. There is no diverticulitis. The lumbar vertebra have normal alignment. Disc spaces are fairly normal. There is mild spurring of t he endplates. Bony pelvis is intact. Hip joints are intact. IMPRESSION: Previous surgery at the gastric fundus. No acute abnormality of the abdomen pelvis. There is mild sig moid diverticulosis without diverticulitis. Appendix is not seen. No sign of appendicitis. No adverse change compared to old exam.
[2020-12-04] MEDS ORDERED: ACET/COD 300 MG/30 MG STARTER PACK 6 TAB BTL PO STA (01:17)
[2020-12-04 01:59] VITALS: BP 141/87; PULSE 95; RESP 16
== END 2020-12-04 01:59 | disposition home or self-care (01) ==
LOC: EC 22:52
DX: R10.12 Left upper quadrant pain (principal); R10.32 Left lower quadrant pain; R11.0 Nausea; I10 Essential (primary) hypertension; E03.9 Hypothyroidism, unspecified; F17.200 Nicotine dependence, unspecified, uncomplicated; Z88.2 Allergy status to sulfonamides; Z79.890 Hormone replacement therapy
CPT/HCPCS: 99284; 96374; 96375; 96361; 36415; 80053; 82150; 83605; 83690; 85025; 81001; 74177; J2405; J1885; C9113; Q9967

== ENCOUNTER 2024-05-15 13:35 | Emergency (ER) | payer BC ==
[2024-05-15 13:45] VITALS: RESP 18; TEMP 98.1
--- NOTE | 2024-05-15 14:03 | ED ---
Abdominal Pain HPI - General Chief Complaint: Abdominal Pain Stated Complaint: abd pain, referral Time Seen by Provider: 05/15/24 13:48 Source: patient, RN notes reviewed, old records reviewed Mode of arrival: ambulatory Limitations: no limitations - History of Present Illness Initial Comments: This is a 58-year-old female to the ER for evaluation of abdominal pain today. Patient had sudden onset of abdominal pain on Tuesday. Patient has pain left fl ank right lower quadrant severe right flank on Tuesday then pain resolved, patient now has anterior abdominal pain right-sided abdominal pain with severe pain. Tenderness to that area. No fevers but decreased appetite nausea vomiting no anorexia patient is drinking water, patient has normal bowel m ovements no blood in the urine MD Complaint: abdominal pain (Right lower quadrant), flank pain -: days(s) (4) Location: RLQ, suprapubic, R flank Radiation: RLQ, suprapubic Migration to: RLQ Severity: moderate Severity scale (1-10): 6 Quality: sharp Consistency: constant Improves With: nothing Worsens With: nothing Context: other (0) Associated Symptoms: nausea Treatments Prior to Arrival: other (0) - Related Data Home Medications Medication Instructions Recorded Confirmed Levothyroxine Sodium [Synthroid] 88 mcg PO DAILY 05/15/24 05/15/24 Allergies Allergy/AdvReac Type Severity Reaction Status Date / Time Sulfa (Sulfonamide Allergy Anaphylaxis Verified 05/15/24 15:40 Antibiotics) Review of Systems ROS Statement: Those systems with pertinent positive or pertinent negative responses have been documented in the HPI. ROS Other: All systems not noted in ROS Statement are negative. Past Medical History Past Medical History: GERD/Reflux, Hypertension, Thyroid Disorder Additional Past Medical History / Comment(s): HX HIATAL HERNIA W/ prev SURGERY; Hypothyroidism History of Any Multi-Drug Resistant Organisms: None Reported Past Surgical History: Hernia Repair, Orthopedic Surgery, Tubal Ligation Additional Past Surgical History / Comment(s): Lt knee scope, hiatal hernia repair 2002, abdominoplasty Past Anesthesia/Blood Transfusion Reactions: Postoperative Nausea & Vomiting (PONV) Additional Past Anesthesia/Blood Transfusion Reaction / Comment(s): WOKE UP DURING EGD. Past Psychological History: No Psychological Hx Reported Smoking Status: Current every day smoker Past Alcohol Use History: None Reported Past Drug Use History: None Reported - Past Family History Mother Family Medical History: No Reported History Father Family Medical History: Cancer, Hypertension Additional Family Medical History / Comment(s): leukemia General Exam Limitations: no limitations General appearance: alert, in no apparent distress Head exam: Present: atraumatic, normocephalic, normal inspection Eye exam: Present: normal appearance, PERRL, EOMI. Absent: scleral icterus, conjunctival injection, periorbital swelling ENT exam: Present: normal exam, mucous membranes moist Neck exam: Present: normal inspection. Absent: tenderness, meningismus, lymphadenopathy Respiratory exam: Present: normal lung sounds bilaterally. Absent: respiratory distress, wheezes, rales, rhonchi, stridor Cardiovascular Exam: Present: regular rate, normal rhythm, normal heart sounds. Absent: systolic murmur, diastolic murmur, rubs, gallop, clicks GI/Abdominal exam: Present: tenderness, guarding, normal bowel sounds. Absent: distended, rebound, rigid Extremities exam: Present: normal inspection, full ROM, normal capillary refill. Absent: tenderness, pedal edema, joint swelling, calf tenderness Back exam: Present: normal inspection Neurological exam: Present: alert, oriented X3, CN II-XII intact Psychiatric exam: Present: normal affect, normal mood Skin exam: Present: warm, dry, intact, normal color. Absent: rash Course Vital Signs 05/15/24 13:41 Temperature 98.1 F Pulse Rate 86 Respiratory 18 Rate Blood Pressure 141/87 O2 Sat by Pulse 97 Oximetry - Reevaluation(s) Reevaluation #1: 05/15/24 14:49 Medical records reviewed Reevaluation #2: 05/15/24 16:15 Symptoms improved here in the ER no acute abdominal pain currently Reevaluation #3: 05/15/24 16:15 Patient is informed of esults and questions answered Reevaluation #4: Was pt. sent in by a medical professional or institution (, PA, DETAILER, urgent care, hospital, or senior living...) When possible be specific @ -no Did you speak to anyone other than the patient for history (EMS, parent, family, police, friend...)? What history was obtained from this source @ -no Did you review nursing and triage notes (agree or disagree)? Why? @ -agree Are old charts reviewed (outside hosp., previous admission, EMS record, old EKG, old radiological studies, urgent care reports/EKG's, senior living records)? Report findings @ -yes Differential Diagnosis (chest pain, altered mental status, abdominal pain women, abdominal pain men, vaginal bleeding, weakness, fever, dyspnea, syncope, headache, dizziness, GI bleed, back pain, seizure, CVA, palpatations, mental health, musculoskeletal)? @ -prior EKG interpreted by me (3pts min.). @ -yes X-rays interpreted by me (1pt min.). @ -yes negative for acute disease CT interpreted by me (1pt min.). @ -no U/S interpreted by me (1pt. min.). @ -no What testing was considered but not performed or refused? (CT, X-rays, U/S, labs)? Why? @ -none What meds were considered but not given or refused? Why? @ -none Did you discuss the management of the patient with other professionals (professionals i.e. , PA, DETAILER, lab, RT, psych nurse, social work program coordinator, glue wheel operator, teacher, campus security officer, case aide)? Give summary @ -no Was smoking cessation discussed for >3mins.? @ -no Was critical care preformed (if so, how long)? @ -no Were there social determinants of health that impacted care today? How? (Homelessness, low income, unemployed, alcoholism, drug addiction, transportation, low edu. Level, literacy, decrease access to med. care, penitentiary, rehab)? @ -none Was there de-escalation of care discussed even if they declined (Discuss DNR or withdrawal of care, Hospice)? DNR status @ -no What co-morbidities impacted this encounter? (DM, HTN, Smoking, COPD, CAD, Cancer, CVA, ARF, Chemo, Hep., AIDS, mental health diagnosis, sleep apnea, morbid obesity)? @ -none Was patient admitted / discharged? Hospital course, mention meds given and route, prescriptions, significant lab abnormalities, going to OR and other pertinent info. @ - Undiagnosed new problem with uncertain prognosis? @ -no Drug Therapy requiring intensive monitoring for toxicity (Heparin, Nitro, Insulin, Cardizem)? @ -no Were any procedures done? @ -no Diagnosis/symptom? @ - Acute, or Chronic, or Acute on Chronic? @ -Acute Uncomplicated (without systemic symptoms) or Complicated (systemic symptoms)? @ -Complicated Side effects of treatment? @ -no Exacerbation, Progression, or Severe Exacerbation? @ -exacerbation Poses a threat to life or bodily function? How? (Chest pain, [place], [place], pneumonia, PE, COPD, DKA, ARF, appy, cholecystitis, CVA, Diverticulitis, Homicidal, Celsa cidal, threat to staff... and all critical care pts) @ -yes Reevaluation #5: Differential Abdominal Pain Women: Appendicitis, Cholecystitis, diverticulosis, ischemic bowel, pancreatitis, hepatitis, UTI, gastroenteritis, AAA, incarcerated hernia, bowel obstruction, constipation, inflammatory bowel, hepatitis, peptic ulcer disease, splenic infarction, perforated viscus, vulvitis, ovarian torsion, PID, kidney stone, placenta abruption, this is not meant to be an all-inclusive list Medical Decision Making - Medical Decision Making 58 female with acute abdominal pain 3 days ago and recurrent abdominal pain today. No acute cause of abdominal pain is found here in the ER patient can be discharged home - Lab Data Result diagrams: 05/15/24 14:45 05/15/24 14:45 Lab Results 05/15/24 05/15/24 05/15/24 Range/Units 14:45 14:45 14:45 WBC 6.6 (3.8-10.6) k/uL RBC 4.61 (3.80-5.40) m/uL Hgb 14.5 (11.4-16.0) gm/dL Hct 44.2 (34.0-46.0) % MCV 96.0 (80.0-100.0) fL MCH 31.5 (25.0-35.0) pg MCHC 32.8 (31.0-37.0) g/dL RDW 13.2 (11.5-15.5) % Plt Count 355 (150-450) k/uL MPV 7.8 Neutrophils % 64 % Lymphocytes % 29 % Monocytes % 4 % Eosinophils % 2 % Basophils % 1 % Neutrophils # 4.2 (1.3-7.7) k/uL Lymphocytes # 1.9 (1.0-4.8) k/uL Monocytes # 0.3 (0-1.0) k/uL Eosinophils # 0.2 (0-0.7) k/uL Basophils # 0.0 (0-0.2) k/uL PT 10.2 (10.0-12.5) sec INR 0.9 (<1.2) APTT 24.8 (22.0-30.0) sec Sodium (137-145) mmol/L Potassium (3.5-5.1) mmol/L Chloride (98-107) mmol/L Carbon Dioxide (22-30) mmol/L Anion Gap mmol/L BUN (7-17) mg/dL Creatinine (0.52-1.04) mg/dL Est GFR (CKD-EPI)AfAm (>60 ml/min/1.73 sqM) Est GFR (CKD-EPI)NonAf (>60 ml/min/1.73 sqM) Glucose (74-99) mg/dL Plasma Lactic Acid Travis (0.7-2.0) mmol/L Calcium (8.4-10.2) mg/dL Phosphorus (2.5-4.5) mg/dL Magnesium (1.6-2.3) mg/dL Total Bilirubin (0.2-1.3) mg/dL AST (14-36) U/L ALT (4-34) U/L Alkaline Phosphatase (38-126) U/L Total Protein (6.3-8.2) g/dL Albumin (3.5-5.0) g/dL Amylase (30-110) U/L Lipase (23-300) U/L Urine Color Colorless Urine Appearance Clear (Clear) Urine pH 6.0 (5.0-8.0) Ur Specific Norris 1.005 (1.001-1.035) Urine Protein Negative (Negative) Urine Glucose (UA) Negative (Negative) Urine Ketones Negative (Negative) Urine Blood Small H (Negative) Urine Nitrite Negative (Negative) Urine Bilirubin Negative (Negative) Urine Urobilinogen <2.0 (<2.0) mg/dL Ur Leukocyte Esterase Negative (Negative) Urine RBC 1 (0-5) /hpf Urine WBC 2 (0-5) /hpf Ur Squamous Epith Cells <1 (0-4) /hpf Urine Bacteria Rare H (None) /hpf 05/15/24 05/15/24 Range/Units 14:45 14:45 WBC (3.8-10.6) k/uL RBC (3.80-5.40) m/uL Hgb (11.4-16.0) gm/dL Hct (34.0-46.0) % MCV (80.0-100.0) fL MCH (25.0-35.0) pg MCHC (31.0-37.0) g/dL RDW (11.5-15.5) % Plt Count (150-450) k/uL MPV Neutrophils % % Lymphocytes % % Monocytes % % Eosinophils % % Basophils % % Neutrophils # (1.3-7.7) k/uL Lymphocytes # (1.0-4.8) k/uL Monocytes # (0-1.0) k/uL Eosinophils # (0-0.7) k/uL Basophils # (0-0.2) k/uL PT (10.0-12.5) sec INR (<1.2) APTT (22.0-30.0) sec Sodium 139 (137-145) mmol/L Potassium 4.2 (3.5-5.1) mmol/L Chloride 103 (98-107) mmol/L Carbon Dioxide 27 (22-30) mmol/L Anion Gap 9 mmol/L BUN 15 (7-17) mg/dL Creatinine 0.79 (0.52-1.04) mg/dL Est GFR (CKD-EPI)AfAm >90 (>60 ml/min/1.73 sqM) Est GFR (CKD-EPI)NonAf 82 (>60 ml/min/1.73 sqM) Glucose 97 (74-99) mg/dL Plasma Lactic Acid Travis 1.0 (0.7-2.0) mmol/L Calcium 9.8 (8.4-10.2) mg/dL Phosphorus 4.0 (2.5-4.5) mg/dL Magnesium 2.0 (1.6-2.3) mg/dL Total Bilirubin 0.5 (0.2-1.3) mg/dL AST 32 (14-36) U/L ALT 28 (4-34) U/L Alkaline Phosphatase 63 (38-126) U/L Total Protein 7.6 (6.3-8.2) g/dL Albumin 4.7 (3.5-5.0) g/dL Amylase 104 (30-110) U/L Lipase 73 (23-300) U/L Urine Color Urine Appearance (Clear) Urine pH (5.0-8.0) Ur Specific Norris (1.001-1.035) Urine Protein (Negative) Urine Glucose (UA) (Negative) Urine Ketones (Negative) Urine Blood (Negative) Urine Nitrite (Negative) Urine Bilirubin (Negative) Urine Urobilinogen (<2.0) mg/dL Ur Leukocyte Esterase (Negative) Urine RBC (0-5) /hpf Urine WBC (0-5) /hpf Ur Squamous Epith Cells (0-4) /hpf Urine Bacteria (None) /hpf - Radiology Data Radiology results: report reviewed (CT abdomen pelvis is negative for acute disease), image reviewed Disposition Clinical Impression: Abdominal pain Disposition: HOME SELF-CARE Condition: Good Instructions (If sedation given, give patient instructions): Abdominal Pain (ED) Is patient prescribed a controlled substance at d/c from ED?: No Referrals: Ashley Garza MD [Primary Care Provider] - 1-2 days Time of Disposition: 16:00
[2024-05-15] MEDS: SODIUM CHLORIDE 0.9% 500 ML 500 ML IV STA (14:47)
[2024-05-15] MEDS: SODIUM CHLORIDE 0.9% 1,000 ML IV STA (14:47)
[2024-05-15] MEDS: MORPHINE SULFATE 4 MG/ML SYRINGE IVP STA (14:50)
[2024-05-15] MEDS: ONDANSETRON 4 MG/2 ML VIAL IVP STA (14:50)
[2024-05-15 15:12] LABS: Appearance,Urine Clear (Clear); Bacteria,Urine Rare /hpf; Bilirubin,Urine Negative (Negative); Blood,Urine Small (Negative); Color,Urine Colorless; Glucose,Urine (UA) Negative (Negative); Ketones,Urine Negative (Negative); Leukocyte Esterase,Urine Negative (Negative); Nitrite,Urine Negative (Negative); Protein,Urine Negative (Negative); RBC,Urine 1 /hpf (0-5); Specific Gravity,Urine 1.005 (1.001-1.035); Squamous Epithelial Cell,Urine <1 /hpf (0-4); Urobilinogen,Urine <2.0 mg/dL (<2.0); WBC,Urine 2 /hpf (0-5)
[2024-05-15 15:21] LABS: Basophils % (A) 1 %; Eosinophils # (A) 0.2 k/uL (0-0.7); Eosinophils % (A) 2 %; HCT 44.2 % (34.0-46.0); HGB 14.5 gm/dL (11.4-16.0); Lymphocytes # (A) 1.9 k/uL (1.0-4.8); Lymphocytes % (A) 29 %; MCH 31.5 pg (25.0-35.0); MCHC 32.8 g/dL (31.0-37.0); Mean Platelet Volume 7.8; Monocytes # (A) 0.3 k/uL (0-1.0); Monocytes % (A) 4 %; Neutrophils # (A) 4.2 k/uL (1.3-7.7); Neutrophils % (A) 64 %; Platelet Count 355 k/uL (150-450); RBC 4.61 m/uL (3.80-5.40); RDW 13.2 % (11.5-15.5); WBC 6.6 k/uL (3.8-10.6)
[2024-05-15 15:26] LABS: INR 0.9 (<1.2); Partial Thromboplastin Time 24.8 sec (22.0-30.0); Prothrombin Time 10.2 sec (10.0-12.5)
[2024-05-15 15:27] LABS: ALT 28 U/L (4-34); AST 32 U/L (14-36); African American GFR (CKD) >90 (>60 ml/min/1.73 sqM); Albumin 4.7 g/dL (3.5-5.0); Alkaline Phosphatase 63 U/L (38-126); Amylase 104 U/L (30-110); Anion Gap 9 mmol/L; Blood Urea Nitrogen 15 mg/dL (7-17); Calcium 9.8 mg/dL (8.4-10.2); Carbon Dioxide 27 mmol/L (22-30); Chloride 103 mmol/L (98-107); Glucose 97 mg/dL (74-99); Lipase 73 U/L (23-300); Non-African American GFR(CKD) 82 (>60 ml/min/1.73 sqM); Potassium 4.2 mmol/L (3.5-5.1); Sodium 139 mmol/L (137-145); Total Bilirubin 0.5 mg/dL (0.2-1.3); Total Protein 7.6 g/dL (6.3-8.2)
--- NOTE | 2024-05-15 15:49 | CT ---
EXAMINATION TYPE: CT abdomen pelvis w con DATE OF EXAM: 05/15/2024 Comparison: 12/03/2020 CLINICAL INDICATION: Female, 58 years old with history of abdominal pain; PHH, RLQ PAIN X FEW DAYS WI TH NAUSEA TECHNIQUE: Performed without Oral Contrast and with IV Contrast, patient injected with 100ml mL of Isovue 300. CT DLP: 411.[address] CTDI: mGy Automated exposure control for dose reduction was used. FINDINGS: The lung bases are clear. There is no change in the moderate to large hiatal hernia and postsurgical changes at the GE junction . The gallbladder is normal without distention, wall thickening, pericholecystic fluid or gallstones. T here is no biliary ductal dilatation. There is no focal mass or organomegaly involving the liver, pancreas, spleen or adrenal glands. There is no solid renal mass or hydronephrosis and there is homogeneous contrast enhancement of the r enal parenchyma. The caliber the abdominal aorta is normal is no retroperitoneal adenopathy or hemorr cyril. The bowel loops are normal in caliber and there is no evidence of dilatation or obstruction. No infla mmatory changes are identified in the bowel wall or mesentery. There is no free intraperitoneal air or fluid. No pelvic mass, free fluid, abscess or adenopathy. The osseous structures and soft tissues are intact. IMPRESSION: No change in the right large hiatal hernia and postsurgical changes at the GE junction. No other sign ificant abnormality seen within the abdomen or pelvis. [facility], , 05/15/2024 3:47 PM
[2024-05-15] MEDS: ONDANSETRON 4 MG ODT STARTER PACK 2 TAB BTL PO STA (17:10)
[2024-05-15] MEDS: traMADol 50 MG STARTER PACK 3 TAB BTL PO STA (17:10)
[2024-05-15] MEDS: KETOROLAC 15 MG/ML 1 ML VIAL IVP STA (17:11)
[2024-05-15] MEDS: HYDROmorphone 0.5 MG/0.5 ML SYRINGE IVP STA (17:12)
[2024-05-15] MEDS: PROCHLORPERAZINE INJ 10 MG/2 ML VIAL IVP STA (17:15)
[2024-05-15 17:30] VITALS: BP 116/74; PULSE 76
== END 2024-05-15 17:33 | disposition home or self-care (01) ==
LOC: EC 13:35
DX: R10.31 Right lower quadrant pain (principal); F17.200 Nicotine dependence, unspecified, uncomplicated; Z88.2 Allergy status to sulfonamides
CPT/HCPCS: 99284; 96374; 96375; 96361 ×2; 36415; 80053; 82150; 83605; 83690; 83735; 84100; 85025; 85610; 85730; 81001; 74177; J2270; J0780; J2405; J1885; S0119; J1171; Q9967